=== PATIENT | female | born 1955 | race Caucasian/White ===

== ENCOUNTER 2019-01-25 14:04 | Emergency (ER) | payer OTHER ==
[2019-01-25] MEDS ORDERED: Morphine 10 MG/ML VIAL ONE (15:04)
[2019-01-25] MEDS ORDERED: Ondansetron PF 4 MG/2 ML Vial ONE (15:05)
[2019-01-25 15:06] LABS: #Eosinphils 0.1 thou/uL (0.0-0.7); #Lymphocytes 1.7 thou/uL (1.20-3.40); #Monocytes 0.9 thou/uL (0.11-0.59); #Neutrophils 5.9 thou/uL (1.40-6.50); %Basophils 0.3 % (0.0-1.0); %Eosinophils 0.9 % (0.0-10.0); %Lymphocytes 19.7 % (21.0-51.0); %Monocytes 10.5 % (0.0-10.0); %Neutrophils 68.6 % (42.0-75.0); Mean Corpuscular HGB CONC 32.2 g/dL (32.0-36.0); Mean Corpuscular Hemoglobin 29.9 pg (27.0-31.0); Mean Corpuscular Volume 92.9 fL (78.0-98.0); Platelet Count 350 thou/uL (130-400); RBC Distribution Width 13.1 % (11.5-14.5); Red Blood Cell (RBC) Count 4.03 mill/uL (4.20-5.40); White Blood Cell (WBC) Count 8.7 thou/uL (4.8-10.8)
[2019-01-25] MEDS ORDERED: Ondansetron ODT 4 MG TAB ONE (15:06)
[2019-01-25] MEDS ORDERED: Morphine 4 MG/ML VIAL ONE (15:07)
[2019-01-25 15:27] LABS: Anion Gap 12 mmol/L (10-20); BUN (Urea Nitrogen) 7 mg/dL (9.8-20.1); Calc. Creatinine Clearance 0 mL/min (70-130); Calcium 9.9 mg/dL (7.8-10.44); Carbon Dioxide 25 mmol/L (23-31); Chloride 105 mmol/L (98-107); Estimated GFR-MDRD 81; Glucose 103 mg/dL (80-115); Potassium 4.4 mmol/L (3.5-5.1); Sodium 138 mmol/L (136-145)
--- NOTE | 2019-01-25 16:20 | ULT ---
VENOUS DOPPLER ULTRASOUND OF THE RIGHT LOWER EXTREMITY ARTERIAL DOPPLER OF THE RIGHT LOWER EXTREMITY: 01/25/19 HISTORY: Right lower extremity pain. TECHNIQUE: Rodriguez scale ultrasound with color flow and spectral Doppler imaging of the arterial and deep venous sy stem of the right lower extremity is performed. FINDINGS: There is good flow, compression and augmentation noted in the right common femoral, femoral, deep fe moral, popliteal, posterior tibial and greater saphenous veins. There is an occluded arterial graft extending to the popliteal artery. The proximal end of this graft is not clear. The popliteal demonstrates occlusion at the popliteal artery level itself. There is f low in the trifurcation. Flow is also demonstrated within the mid SFA. No evidence of DVT in the right lower extremity. IMPRESSION: Occluded arterial bypass graft and the popliteal artery at the site of insertion. POS: CHE[facility]
== END 2019-01-25 17:11 | disposition home or self-care (01) ==
LOC: ERS 14:04
DX: Z48.01 Encounter for change or removal of surgical wound dressing (principal); Z87.891 Personal history of nicotine dependence
CPT/HCPCS: 36415; 80048; 85025; 93923; 96372; J2270; J2405; Q0162